=== PATIENT | female | born 1955 | race American Indian/Alaskan Native ===

== ENCOUNTER 2016-10-20 08:58 | Outpatient (CLI) | payer BC ==
--- NOTE | 2016-10-21 13:12 | Mammography Report ---
BILATERAL DIGITAL SCREENING MAMMOGRAM with CAD : 10/20/16 08:58:00 CLINICAL: Routine screening. COMPARISON:09/23/15 FINDINGS: The breasts are heterogeneously dense, which may obscure small masses.Bilateral benign calcifications. No mass, architectural distortion or suspicious calcifications. IMPRESSION: No mammographic evidence of malignancy. BI-RADS CATEGORY: 2 -- Benign RECOMMENDATION: Routine mammographic screening in one year. COMMENT: Patient follow-up letters are generated by our [employer] application.
== END 2016-10-20 08:59 | disposition home or self-care (01) ==
LOC: SPVWC 08:58
PROVIDERS: ATTEND Family Medicine
DX: Z12.31 Encounter for screening mammogram for malignant neoplasm of breast (principal)
CPT/HCPCS: 77067; G0202

== ENCOUNTER 2017-10-24 08:20 | Outpatient (CLI) | payer BC ==
--- NOTE | 2017-10-24 14:45 | Mammography Report ---
BILATERAL DIGITAL SCREENING MAMMOGRAM with CAD : 10/24/17 08:20:00 CLINICAL: Routine screening. COMPARISON:10/20/16 FINDINGS: The breasts are heterogeneously dense, which may obscure small masses.Bilateral benign calcifications. No mass, architectural distortion or suspicious calcifications. IMPRESSION: No mammographic evidence of malignancy. BI-RADS CATEGORY: 2 -- Benign RECOMMENDATION: Routine mammographic screening in one year. COMMENT: Patient follow-up letters are generated by our [email or web address] application.
== END 2017-10-24 08:21 | disposition home or self-care (01) ==
LOC: SPVWC 08:20
PROVIDERS: ATTEND Family Medicine
DX: Z12.31 Encounter for screening mammogram for malignant neoplasm of breast (principal)
CPT/HCPCS: 77067

== ENCOUNTER 2018-10-25 08:19 | Outpatient (CLI) | payer BC ==
--- NOTE | 2018-10-25 10:01 | Mammography Report ---
BILATERAL DIGITAL SCREENING MAMMOGRAM with CAD : 10/25/18 08:19:00 CLINICAL: Routine screening. COMPARISON:10/24/17 FINDINGS: The breasts are heterogeneously dense, which may obscure small masses.Bilateral benign calcifications, some of which are arterial. No mass, architectural distortion or suspicious calcifications. IMPRESSION: No mammographic evidence of malignancy. BI-RADS CATEGORY: 2 -- Benign RECOMMENDATION: Routine mammographic screening in one year. COMMENT: Patient follow-up letters are generated by our [employer] application.
== END 2018-10-25 08:20 | disposition home or self-care (01) ==
LOC: SPVWC 08:19
PROVIDERS: ATTEND Family Medicine
DX: Z12.31 Encounter for screening mammogram for malignant neoplasm of breast (principal)
CPT/HCPCS: 77067

== ENCOUNTER 2019-11-13 11:41 | Outpatient (CLI) | payer MEDICARE ==
--- NOTE | 2019-11-13 15:18 | Mammography Report ---
DIGITAL SCREENING MAMMOGRAM WITH CAD, 11/13/2019 INDICATION: Routine screening mammography. TECHNIQUE: Digital bilateral 2D mammography was obtained in the craniocaudal and mediolateral obliq ue projections. This examination was interpreted with the benefit of Computer-Aided Detection analysi s. COMPARISON: 10/25/2018, 10/24/2017 FINDINGS: Breast Density: The breasts are heterogeneously dense, which may obscure small masses. There is no evidence of dominant mass, suspicious calcifications or architectural distortion in eithe r breast. Bilateral benign-appearing calcifications are unchanged. IMPRESSION: Follow up recommendation: Routine yearly BI-RADS Category 2: Benign. A "normal" or negative report should not discourage follow up or biopsy of a clinically significant f inding. A written summary of these findings will be mailed to the patient. The patient will be entered into a mammography reporting system which will generate a reminder letter for the patient's next appointmen t at the appropriate interval. The [employer] recommends yearly mammograms starting at age 40 and continuing as l [place] as a woman is in good health. Breast MRI is recommended for women with an approximate 20-25% or greater lifetime risk of breast cancer, including women with a strong family history of breast or ova raphael cancer or who have been treated for Hodgkin's disease. Signer Name: Dre Nicole MD Signed: 11/13/2019 3:14 PM Workstation Name: [id number]
== END 2019-11-13 11:42 | disposition home or self-care (01) ==
LOC: SPVWC 11:41
PROVIDERS: ATTEND Family Medicine
DX: Z12.31 Encounter for screening mammogram for malignant neoplasm of breast (principal); N64.89 Other specified disorders of breast
CPT/HCPCS: 77067

== ENCOUNTER 2020-12-18 10:23 | Outpatient (CLI) | payer MEDICARE ==
--- NOTE | 2020-12-18 18:04 | Mammography Report ---
DIGITAL SCREENING MAMMOGRAM WITH CAD, 12/18/2020 CLINICAL INFORMATION / INDICATION: Routine screening mammography. SCREENING MAMMO Z12.31 TECHNIQUE: Digital bilateral 2D mammography was obtained in the craniocaudal and mediolateral obliqu e projections. This examination was interpreted with the benefit of Computer-Aided Detection analysis . COMPARISON: 10/24/2017, 10/25/2018 FINDINGS: Breast Density: The breasts are heterogeneously dense, which may obscure small masses. No dominant mass, suspicious calcifications, or architectural distortion in either breast. Scattered calcifications are noted bilaterally. Vascular calcifications are present bilaterally. Clip s are present in the left subareolar region. Overall, no interval change. IMPRESSION: No mammographic evidence of malignancy. Follow up recommendation: Routine yearly BI-RADS Category 2: Benign. A "normal" or negative report should not discourage follow up or biopsy of a clinically significant f inding. A written summary of these findings will be mailed to the patient. The patient will be entered into a mammography reporting system which will generate a reminder letter for the patient's next appointmen t at the appropriate interval. The [employer] recommends yearly mammograms starting at age 40 and continuing as l [place] as a woman is in good health. Breast MRI is recommended for women with an approximate 20-25% or greater lifetime risk of breast cancer, including women with a strong family history of breast or ova raphael cancer or who have been treated for Hodgkin's disease. Signer Name: Fatou Golden MD Signed: 12/18/2020 5:59 PM Workstation Name: [email or web address]
== END 2020-12-18 10:24 | disposition home or self-care (01) ==
LOC: SPVWC 10:23
PROVIDERS: ATTEND Family Medicine
DX: Z12.31 Encounter for screening mammogram for malignant neoplasm of breast (principal); N64.89 Other specified disorders of breast
CPT/HCPCS: 77067

== ENCOUNTER 2021-11-04 10:56 | Outpatient (CLI) | payer MEDICARE ==
--- NOTE | 2021-11-04 15:40 | Mammography Report ---
DEXA BONE DENSITY SCAN INDICATION: POSTMENOPAUSAL STATE, post-menopausal COMPARISON: 09/23/2015 LUMBAR SPINE (L1-L4): Bone mineral density (BMD) is 1.383 g/cm2. T-score is 3.1 (standard deviations of Young Adult mean). RIGHT FEMORAL NECK: Bone mineral density (BMD) is 0.784 g/cm2. T-score is -0.6 (standard deviations of Young Adult mean). DENSITOMETRY TRENDS: Lumbar change from prior study: Increase 0.1%. Femoral neck mean change from previous study: Decrease 6.8%. IMPRESSION: 1. WHO Classification: Normal bone density. Fracture Risk: Not Increased. Signer Name: Darrel Olsen MD Signed: 11/04/2021 3:36 PM Workstation Name: [email or web address]
== END 2021-11-04 10:57 | disposition home or self-care (01) ==
LOC: SPVWC 10:56
PROVIDERS: ATTEND Family Medicine
DX: Z13.820 Encounter for screening for osteoporosis (principal); Z78.0 Asymptomatic menopausal state
CPT/HCPCS: 77080

== ENCOUNTER 2021-12-22 13:43 | Outpatient (CLI) | payer MEDICARE ==
--- NOTE | 2021-12-24 10:04 | Mammography Report ---
DIGITAL SCREENING MAMMOGRAM WITH CAD, 12/22/2021 CLINICAL INFORMATION / INDICATION: Routine screening mammography. TECHNIQUE: Digital bilateral 2D mammography was obtained in the craniocaudal and mediolateral obliqu e projections. This examination was interpreted with the benefit of Computer-Aided Detection analysis . COMPARISON: 12/18/2020, 11/13/2019 FINDINGS: Breast Density: The breasts are heterogeneously dense, which may obscure small masses. No dominant mass, suspicious calcifications, or architectural distortion in either breast. Stable mitali cifications right breast. Postsurgical scar, left subareolar breast. Overall, no interval change. IMPRESSION: No mammographic evidence of malignancy. Follow up recommendation: Routine yearly screening mammogram. BI-RADS Category 2: BENIGN. A "normal" or negative report should not discourage follow up or biopsy of a clinically significant f inding. A written summary of these findings will be mailed to the patient. The patient will be entered into a mammography reporting system which will generate a reminder letter for the patient's next appointmen t at the appropriate interval. The [employer] recommends yearly mammograms starting at age 40 and continuing as l [place] as a woman is in good health. Breast MRI is recommended for women with an approximate 20-25% or greater lifetime risk of breast cancer, including women with a strong family history of breast or ova raphael cancer or who have been treated for Hodgkin's disease. Signer Name: Fatou Golden MD Signed: 12/24/2021 10:00 AM Workstation Name: [employer]
== END 2021-12-22 13:44 | disposition home or self-care (01) ==
LOC: SPVWC 13:43
PROVIDERS: ATTEND Family Medicine
DX: Z12.31 Encounter for screening mammogram for malignant neoplasm of breast (principal)
CPT/HCPCS: 77067